=== PATIENT | male | born 1975 | race Caucasian/White ===

== ENCOUNTER 2016-04-06 19:26 | Emergency (ER) | payer MEDICAID ==
[~2016-04-06] VITALS: Ht 167.6 cm; Wt 78.0 kg
[~2016-04-06 19:26] MED LIST: IBUP100T6; MECL25TA2 PO
[2016-04-06 19:41] VITALS: Ht 167.6 cm; Wt 78.0 kg
[2016-04-06] MEDS ORDERED: CEPH-443 PO (21:09)
--- NOTE | 2016-04-06 21:09 | ERD ---
ER Documentation Chief Complaint Date/Time DATE: 04/06/16 TIME: 21:04 Chief Complaint cellulitis Left calf. Hx of DM HPI This patient is a 40-year-old male with history of type 2 diabetes presenting to the department with abscess to his right posterior calf for the past 3 days. He reports mild 4 out of 10 pain associated with the abscess. He states he does not take medication for his diabetes currently because his primary care physician stated he was on the borderline for type 2 diabetes. He reports home sugars around 130. He denies any fevers, chills, recent antibiotic use, nausea , vomiting, diarrhea, or other symptoms at this time. ROS All systems reviewed and are negative except as per history of present illness. Medications Home Meds Active Scripts Sulfamethoxazole-Trimethoprim* (Bactrim* DS) 800-160 Mg Tab, 1 TAB PO BID for 7 Days, #14 TAB Prov:FADY RITTER PA-C 04/06/16 Cephalexin* (Keflex*) 500 Mg Capsule, 500 MG PO TID for 7 Days, #21 CAP Prov:FADY RITTER PA-C 04/06/16 Meclizine Hcl* (Antivert*) 25 Mg Tablet, 25 MG PO Q6H Y for dizziness, #20 TAB Prov:BRITTANY MCCLURE DO 04/12/15 Reported Medications Ibuprofen (Advil) 100 Mg Tab.chew 03/07/09 Allergies Allergies: Coded Allergies: No Known Allergies (Verified Allergy, Mild, 08/23/11) PMhx/Soc Medical and Surgical Hx: pt denies Medical Hx, pt denies Surgical Hx History of Surgery: No Anesthesia Reaction: No Hx Neurological Disorder: No Hx Respiratory Disorders: No Hx Cardiac Disorders: No Hx Psychiatric Problems: No Hx Miscellaneous Medical Probl: No Hx Alcohol Use: No Hx Substance Use: No Hx Tobacco Use: No FmHx Noncontributory for chief complaint Physical Exam Vitals Vital Signs Date Time Temp Pulse Resp B/P Pulse Ox O2 Delivery O2 Flow Rate FiO2 04/06/16 21:31 98.0 80 18 125/66 98 Room Air 04/06/16 19:41 99.3 98 20 146/92 100 Physical Exam INITIAL VITAL SIGNS: Reviewed by me. GENERAL: Alert and interactive. No acute distress. HEAD: Head is normocephalic and atraumatic. EYES: EOMI. No scleral icterus. No conjunctival injection. ENT: Moist mucosa. NECK: Supple. Full range of motion. RESPIRATORY: Normal respiratory effort. Clear breath sounds bilaterally. No wheezing, rales, or rhonchi. CV: Regular rate and rhythm. Normal S1 S2. No S3 or S4. No murmurs. ABDOMEN: Soft, non-distended, non-tender. No guarding. No rebound. No masses. EXTREMITIES: No deformity. SKIN: There is a 2 cm x 2 cm fluctuant abscess with associated erythema and purulent discharge present to the right posterior calf. There is no lymphatic streaking or other signs of severe cellulitis. NEUROLOGIC: Alert and oriented x 4. Speech is normal. Moves all extremities equally. No motor or sensory deficits noted. Results 24 hrs Current Medications Medications (Trade) Dose Ordered Sig/Feli Route PRN Reason Start Time Stop Time Status Last Admin Dose Admin Ceftriaxone Sodium (Rocephin) 1 gm ONCE ONCE IM 04/06/16 21:30 04/06/16 21:31 DC 04/06/16 21:27 Procedures/MDM 40-year-old male presents secondary to complaints of abscess to the right posterior calf for the past 3 days. On physical examination there is a 2 cm x 2 cm abscess with fluctuance on the posterior right lower extremity. Abscess Incision and Drainage with irrigation by me: Location: Right posterior lower extremity Anesthesia: Local 1% Lidocaine Technique: Irrigated. Disrupted loculations w/ instrumentation Packing: Iodoform packing Complications: Neurovascularly intact post procedure 48 hour wound check. Scar minimization instructions given. Patient's skin symptoms have stabilized while they have been evaluated in the department and are appropriate for outpatient care and work up. Exam and w/u not consistent w/ sepsis, deep space infection, or foreign body. Primary diagnosis: Abscess with incision and drainage I have low suspicion for severe cellulitis, cellulitis with lymphatic streaking , septicemia, or other emergencies at this time. The patient will be discharged home with a prescription for Keflex and Bactrim for 7 days. The patient was given an injection of IM Rocephin in the department. I am pursuing antibiotic treatment at this time due to the patient's history of type 2 diabetes and higher risk of infection, especially cellulitis of the lower extremities. Patient agrees with the plan at this time and he is stable for discharge. All questions and concerns were addressed. Departure Diagnosis: Primary Impression: Abscess Condition: Stable Patient Instructions: Abscess Drainage, Abscess, Antiobiotic Treatment Only Additional Instructions: Regrese en 48 horas por otra evaluacion. No mas mejor en 2-3 rivera, regresar. Mas peor en 24 horas, regresear rapidamente. Ir a doctor primario in 5-7 rivera. Usar instrucciones cuando alphonso medicamento. FADY RITTER PA-C Apr 06, 2016 21:09
[2016-04-06] MEDS ORDERED: BACTDS PO (21:10)
[2016-04-06] MEDS ORDERED: CEFTRIAXONE 1 GM INJ IM ONE (21:30)
[2016-04-06 21:31] VITALS: BP 125/66; PULSE 80; RESP 18; TEMP 98
== END 2016-04-06 21:33 | disposition home or self-care (01) ==
LOC: FTE 19:26
DX: L02.415 Cutaneous abscess of right lower limb (principal)
CPT/HCPCS: 10061; J0696

== ENCOUNTER 2016-04-08 19:35 | Emergency (ER) | payer MEDICAID ==
[~2016-04-08] VITALS: Ht 177.8 cm; Wt 76.0 kg
[~2016-04-08 19:35] MED LIST changes: +BACTDS PO; +CEPH-443 PO
[2016-04-08 20:20] VITALS: Ht 177.8 cm; Wt 76.0 kg
--- NOTE | 2016-04-08 21:21 | ERD ---
ER Documentation Chief Complaint Date/Time DATE: 04/08/16 TIME: 21:18 Chief Complaint abscess right ankle HPI Patient is a 40-year-old male who presents to the ED with right ankle abscess recheck. He states that 2 days ago it was drained and packed. He is here for packing removal and recheck denies any fevers or chills. Patient has been taking Bactrim and Keflex. Headache or dizziness. Denies chest pain, cough, shortness of breath or difficulty breathing. Denies difficulty walking. No other complaints. ROS All systems reviewed and are negative except as per history of present illness. Medications Home Meds Active Scripts Sulfamethoxazole-Trimethoprim* (Bactrim* DS) 800-160 Mg Tab, 1 TAB PO BID for 7 Days, #14 TAB Prov:FADY RITTER PA-C 04/06/16 Cephalexin* (Keflex*) 500 Mg Capsule, 500 MG PO TID for 7 Days, #21 CAP Prov:FADY RITTER PA-C 04/06/16 Meclizine Hcl* (Antivert*) 25 Mg Tablet, 25 MG PO Q6H Y for dizziness, #20 TAB Prov:BRITTANY MCCLURE DO 04/12/15 Reported Medications Ibuprofen (Advil) 100 Mg Tab.chew 03/07/09 Allergies Allergies: Coded Allergies: No Known Allergies (Verified Allergy, Mild, 08/23/11) PMhx/Soc Medical and Surgical Hx: pt denies Medical Hx, pt denies Surgical Hx History of Surgery: No Anesthesia Reaction: No Hx Neurological Disorder: No Hx Respiratory Disorders: No Hx Cardiac Disorders: No Hx Psychiatric Problems: No Hx Miscellaneous Medical Probl: No Hx Alcohol Use: No Hx Substance Use: No Hx Tobacco Use: No Smoking Status: Never smoker Physical Exam Vitals Vital Signs Date Time Temp Pulse Resp B/P Pulse Ox O2 Delivery O2 Flow Rate FiO2 04/08/16 20:20 98.3 70 20 120/72 99 Physical Exam GENERAL: Well-developed, well-nourished male. Appears in no acute distress. HEAD: Normocephalic, atraumatic. EYES: Pupils are equally reactive bilaterally. EOMs grossly intact. No conjunctival erythema. ENT: Moist mucous membranes. No uvula deviation. No kissing tonsils. No exudates. NECK: Supple. No lymphadenopathy or thyromegaly. No meningismus. negative kernig. negative brudinski. LUNG: Clear to auscultation bilaterally. No rhonchi, wheezing, rales or coarse breath sounds. HEART: Regular rate and rhythm. No murmurs, rubs or gallops. Extremities: Equal pulses bilaterally. No peripheral clubbing, cyanosis or edema. No unilateral leg swelling. 2 x 2cm healing abscess. packing present. No warmth. NEUROLOGIC: Alert and oriented. Moving all four extremities. 5/5 strength in all extremities. Normal speech. Steady gait. SKIN: Normal color. Warm and dry. No rashes or lesions. Capillary refill < 2 seconds Procedures/MDM ER COURSE: I kept the patient and/or family informed of laboratory and diagnostic imaging results throughout the emergency room course. MEDICAL DECISION MAKING: This is a 40-year-old male who presents abscess check and packing removal. Vital signs were reviewed. Patient is afebrile. Patient is not hypoxic. Patient is not toxic or ill-appearing. Patient has a healing abscess on his lower right extremity. Packing was removed without difficulty. Low suspicion for necrotizing fasciitis, SJS, toxic epidermal necrolysis, Kawasaki, erythema multiforme, gangrene, scarlet fever, meningococcemia, sepsis, anaphylaxis, sepsis, deep space infection, or foreign body. DISCHARGE: At this time, patient is stable for discharge and outpatient management with no new complaints during the ER course. Patient to return to the ED in 2 days for recheck.. Patient will be discharged home with instructions to recheck for new or worsening symptoms such as fever, nausea, weakness, LOC and to follow up with primary care in the next 1-2 days. Patient was advised to return to the ER for any new or worsening symptoms. Plan was discussed and patient and/or family understands and agrees. Home instructions were given. Departure Diagnosis: Primary Impression: Wound check, abscess Condition: Stable Patient Instructions: Abscess, Packing Removal Additional Instructions: Llame al doctor GUERO y fabian elizabeth MARIA LUZ PARA DENTRO DE 1-2 CARTER.Dgale a la secretaria que nosotros le instruimos hacer esta maria luz.Avise o llame si fonseca condicin se empeora antes de la maria luz. Regresa aqui si peor o no mejor. Regrese in 2 carter. JILLIAN FLYNN PA-C Apr 08, 2016 21:21
[2016-04-08 21:43] VITALS: BP 136/87; PULSE 89; RESP 20; TEMP 98.5
== END 2016-04-08 21:40 | disposition home or self-care (01) ==
LOC: FTE 19:35
DX: Z48.01 Encounter for change or removal of surgical wound dressing (principal)
CPT/HCPCS: 99281

== ENCOUNTER 2016-04-14 20:34 | Emergency (ER) | END 2016-04-14 21:36 | disposition home or self-care (01) | DX: Z48.01 Encounter for change or removal of surgical wound dressing (principal) ==

== ENCOUNTER 2016-06-09 22:05 | Emergency (ER) | payer SELFPAY ==
[~2016-06-09 22:05] MED LIST changes: +CLIN-73 PO
== END 2016-06-09 22:38 | disposition left against medical advice (07) ==
LOC: E/R 22:05
DX: Z53.21 Procedure and treatment not carried out due to patient leaving prior to being seen by health care provider (principal)

== ENCOUNTER 2016-06-21 10:00 | Emergency (ER) | payer MEDICAID ==
[~2016-06-21] VITALS: Ht 165.1 cm; Wt 80.5 kg
[2016-06-21 10:16] VITALS: Ht 165.1 cm; Wt 80.5 kg
[2016-06-21] MEDS ORDERED: ACET500C5 PO (11:08)
[2016-06-21] MEDS ORDERED: IBUP-1542 PO (11:08)
[2016-06-21] MEDS ORDERED: CETI10CA PO (11:08)
[2016-06-21] MEDS ORDERED: BENZ100C70 PO (11:08)
--- NOTE | 2016-06-21 12:17 | ERD ---
ER Documentation Chief Complaint Date/Time DATE: 06/21/16 TIME: 12:[address], COUGH, CONGESTION X1 WEEK HPI Patient is a 41-year-old male who presents to the ED with sore throat, cough, congestion 1 week. Denies shortness of breath or difficulty breathing or chest pain. Denies headache or dizziness. Denies neck pain or stiffness. Denies abdominal pain, nausea, vomiting or diarrhea. Denies fever or chills. Denies leg pain or swelling. Denies recent travel or recent surgeries. Has not tried any medication for his symptoms. Also states that his son is sick with similar symptoms. No other complaints. ROS All systems reviewed and are negative except as per history of present illness. Medications Home Meds Active Scripts Benzonatate* (Tessalon Perle*) 100 Mg Capsule, 100 MG PO Q8H Y for COUGH for 14 Days, CAP Prov:JILLIAN FLYNNC 06/21/16 Cetirizine Hcl* (Zyrtec*) 10 Mg Capsule, 10 MG PO DAILY, #30 TAB.CHEW Prov:JILLIAN FLYNN-C 06/21/16 Ibuprofen* (Motrin*) 600 Mg Tab, 600 MG PO Q6, #30 TAB Prov:JILLIAN FLYNN-C 06/21/16 Acetaminophen* (Tylophen*) 500 Mg Capsule, 1 CAP PO Q6H Y for PAIN AND OR ELEVATED TEMP, #20 CAP Prov:JILLIAN FLYNN-C 06/21/16 Clindamycin Hcl* (Clindamycin Hcl*) 300 Mg Capsule, 300 MG PO TID for 10 Days, CAP Prov:ALISON CHAPMAN NP 04/14/16 Sulfamethoxazole-Trimethoprim* (Bactrim* DS) 800-160 Mg Tab, 1 TAB PO BID for 7 Days, #14 TAB Prov:FADY RITTER PA-C 04/06/16 Cephalexin* (Keflex*) 500 Mg Capsule, 500 MG PO TID for 7 Days, #21 CAP Prov:FADY RITTERC 04/06/16 Meclizine Hcl* (Antivert*) 25 Mg Tablet, 25 MG PO Q6H Y for dizziness, #20 TAB Prov:BRITTANY MCCLURE DO 04/12/15 Reported Medications Ibuprofen (Advil) 100 Mg Tab.chew 03/07/09 Allergies Allergies: Coded Allergies: No Known Allergies (Verified Allergy, Mild, 06/21/16) PMhx/Soc Medical and Surgical Hx: pt denies Medical Hx, pt denies Surgical Hx History of Surgery: No Anesthesia Reaction: No Hx Neurological Disorder: No Hx Respiratory Disorders: No Hx Cardiac Disorders: No Hx Psychiatric Problems: No Hx Miscellaneous Medical Probl: No Hx Alcohol Use: No Hx Substance Use: No Hx Tobacco Use: No Smoking Status: Never smoker FmHx Family History: No coronary disease, No diabetes, No other Physical Exam Vitals Vital Signs Date Time Temp Pulse Resp B/P Pulse Ox O2 Delivery O2 Flow Rate FiO2 06/21/16 10:16 98.7 84 16 125/72 97 Physical Exam GENERAL: Well-developed, well-nourished male. Appears in no acute distress. HEAD: Normocephalic, atraumatic. EYES: Pupils are equally reactive bilaterally. EOMs grossly intact. No conjunctival erythema. ENT: Moist mucous membranes. No uvula deviation. No kissing tonsils. No exudates. Bilateral TMs are nonerythematous clear with no drainage. No mastoid tenderness NECK: Supple. No lymphadenopathy or thyromegaly. No meningismus. negative kernig. negative brudinski. LUNG: Clear to auscultation bilaterally. No rhonchi, wheezing, rales or coarse breath sounds. HEART: Regular rate and rhythm. No murmurs, rubs or gallops. NEUROLOGIC: Alert and oriented. Moving all four extremities. 5/5 strength in all extremities. Normal speech. Steady gait. SKIN: Normal color. Warm and dry. No rashes or lesions. Capillary refill < 2 seconds Procedures/MDM ER COURSE: I kept the patient and/or family informed of laboratory and diagnostic imaging results throughout the emergency room course. MEDICAL DECISION MAKING: This is a 5-year-old male who presents with cough, runny nose and congestion 1 week. Vital signs were reviewed. Patient is afebrile. Patient is not hypoxic. Patient is not toxic or ill-appearing. Patient has URI of viral etiology. No chest x-ray is needed today as his lung examination is within normal limits and does not show signs of respiratory distress. Low suspicion for pneumonia, PE, pneumothorax, ACS, epiglottitis, obstruction, TB, pertussis, meningitis, sepsis. DISCHARGE: At this time, patient is stable for discharge and outpatient management with no new complaints during the ER course. Patient was sent home with saline nasal spray, Tylenol, Motrin and Tessalon Perles and Zyrtec. Patient will be discharged home with instructions to recheck for new or worsening symptoms such as fever, nausea, weakness, LOC and to follow up with primary care in the next 1 -2 days. Patient was advised to return to the ER for any new or worsening symptoms. Plan was discussed and patient and/or family understands and agrees. Home instructions were given. Departure Diagnosis: Primary Impression: Acute URI Condition: Stable Patient Instructions: Uri, Viral, No Abx (Adult) Additional Instructions: Llame al doctor MAANA y fabian elizabeth MARIA LUZ PARA DENTRO DE 1-2 CARTER.Dgale a la secretaria que nosotros le instruimos hacer esta maria luz.Avise o llame si fonseca condicin se empeora antes de la maria luz. Regresa aqui si peor o no mejor. JILLIAN FLYNN PA-C Jun 21, 2016 12:17
== END 2016-06-21 11:28 | disposition home or self-care (01) ==
LOC: FTE 10:00
DX: J06.9 Acute upper respiratory infection, unspecified (principal)
CPT/HCPCS: 99283